=== PATIENT | male | born 1970 | race Caucasian/White ===

== ENCOUNTER 2019-03-18 17:34 | Emergency (ER) | payer SELFPAY ==
[2019-03-18 17:36] VITALS: BP 144/95; PULSE 100; RESP 17; TEMP 36.8; O2SAT 98; BMI 24.0
[2019-03-18] MEDS: Bupivacaine Mpf 0.5% 30 ML VIAL INFILT (18:38)
--- NOTE | 2019-03-18 18:40 | RAD_ITS ---
STUDY: X-RAY - RIGHT HAND, ATTENTION FIRST FINGER REASON FOR EXAM: Male, 48 years old. Pain and redness edema TECHNIQUE: view(s) of the finger were obtained. COMPARISON: None. FINDINGS: The bones of the thumb are intact and located. There is focal soft tissue swelling immediately proximal to the nail. RAD/Finger(s) Min 2 Views IMPRESSION: Intact osseous structures. Linda-ungal soft tissue swelling. Electronically Signed: Clem Lowry, at 19:01 EDT Tel , Service support ,
--- NOTE | 2019-03-18 19:48 | ED.DCSUM_ITS ---
- ER Visit Summary Date of Service: 03/18/19 Chief Complaint: Right thumb pain History of Present Illness: The patient is a 48 M with no primary care physician. He reports his right thumb pain that began 5 days ago. Describes a sharp, throbbing pain is 10 to 10 hours now 10 currently. Is worsened by noth ing. Is relieved by soaks and Epson salts. He reports he does have paresthesias. He denies any trauma. He denies any drainage from the area. He denies any fever. Physical Examination: Vitals: Stable. Afebrile. General: Well-nourished and well-developed. Head: Normocephalic atraumatic. Neck: Supple, no lymphadenopathy. No JVD. Nontender. Cardiovascular: Regular rate and rhythm. No murmurs. Respiratory: No respiratory distress. Clear to auscultation bilaterally. Abdominal: Soft, nontender, nondistended, normal bowel sounds. No guarding, rebound, or peritoneal signs. Back: Nontender. Extremities: Right thumb: Large paronychia that starts on the medial side and extends laterally. This also extends under the nail. There is no felon. Skin: Normal color, no rash. Neurologic: Alert and oriented ?3. Cranial nerves II through XII are intact. Normal strength and sensation. Psych: Normal affect. Test Results: X-ray shows no bony involvement Emergency Department Course and Treatment: Patient had a digital block performed. This was drained. He tolerated this well. He refused pain medications. He does not want a dose of antibiotics here as it is too expensive. Treatment Plan: Patient will be discharged with a prescription for Augmentin. He refused pain medications for home. He is instructed to follow-up with Dr. Hinojosa in 2 days for a wound check. Return to the emergency department for any worsening symptoms. Disposition: To home in improved and stable condition. Impression: 1. Right thumb paronychia. 2. Incision and drainage. Procedure Note: Thumb was cleansed with chlorhexidine soap. Anesthetized with 5 cc of bupivacaine as a digital block. An 11 blade was used to separate the nail from the eponychial fold. A large amount of pus was drained. The wound was copiously irrigated with normal saline. It was loosely packed with iodoform gauze. The patient tolerated it well. This note was generated with Dragon dictation software. It may contain incorrect words, spelling, and punctuation that were not noted in review of the chart prior to signing ED Disposition - Plan for ED Patient: Disposition: Home or Assisted Living Instructions: Paronychia Prescriptions: Amox/Clavulanate Tablet [Augmentin Tablet] 875 mg PO Q12H #14 tab Prescription Printed Referrals: Michael Hinojosa DO [STAFF PHYSICIAN] - 2 Days for wound check
[2019-03-18 20:04] VITALS: RESP 16
== END 2019-03-18 20:05 | disposition home or self-care (01) ==
LOC: ED 18:33
PROVIDERS: Emergency Provider Emergency Medicine
DX: L03.011 Cellulitis of right finger (principal); Z72.0 Tobacco use
CPT/HCPCS: 10060; 73140; 99284

== ENCOUNTER 2020-04-29 17:22 | Emergency (ER) | payer MEDICAID, SELFPAY ==
[2020-04-29 17:23] VITALS: BP 146/95; PULSE 88; RESP 16; TEMP 36.6; O2SAT 99; BMI 24.8
--- NOTE | 2020-04-29 18:52 | ED.VIS.GEN ---
History of Present Illness Chief Complaint: Abd Pain Informant: Patient Onset: Month(s) - 1 Narrative: Patient presents with concerns of hernia right pelvic region. States initially noticed symptoms a month ago 2 weeks ago was lifting when he had the push it down. States mild symptoms that would come and go. No nausea or vomiting. Normal daily bowel movements. No history of similar prior to a month ago. Denies any past medical history. Prior similar symptoms: No Past Medical History - Allergies and Home Meds Allergies/Adverse Reactions: Allergies No Known Allergies Allergy (Verified 04/29/20 17:25) Primary Care Physician: Care Physician,No Primary [Primary Care Provider] - Past Medical History: None Smoking Status: Current some day smoker Review of Systems General: Denies: Chills, Fever, Sweats Eyes: Denies: Visual changes - bilaterally, Diplopia ENT: Denies: Rhinorrhea, Sore throat Cardiovascular: Denies: Chest pain, Palpitations Respiratory: Denies: Dyspnea, Cough, Dyspnea on exertion Gastrointestinal: Reports: - - Hernia. Denies: Abdominal pain, Nausea, Vomiting, Diarrhea, Melena, Hematochezia Genitourinary: Denies: Dysuria, Hematuria, Frequency Musculoskeletal: Denies: Back pain, Extremity Pain Skin: Denies: Rash, Wounds Neurological: Denies: Headache, Weakness, Numbness Physical Exam Vital Signs/Narrative: Vital Signs Temp Pulse Resp BP Pulse Ox 04/29/20 17:23 98 F 88 16 146/95 H 99 Inital Vital Signs reviewed: Yes General: Well nourished, Well developed, No Acute Distress Head: Normocephalic, Atraumatic Eyes: Perrl, EOMI ENT: Moist mucous membranes, No rhinorrhea Neck: Supple, Nontender Cardiovascular: Regular rate, Regular rhythm, No murmurs Respiratory: No distress, CTA bilaterally, Chest nontender Abdomen: Soft, Nontender, Nondistended, Normal bowel sounds, - - Right pelvis palpated direct hernia that was reducible both in standing and laying down. There is no inguinal hernia. Back: Nontender, Normal Inspection Extremities: Nontender, No edema Skin: Normal color, No rash Neurological: Alert, Oriented x3, Cranial nerves II-XII grossly intact, Normal Strength, Normal Sensation Psychological: Normal affect, Normal Mood Diagnostic/Tx/Re-eval - Medical Decision Making Patient nontoxic exam with concerns for direct hernia that is reducible. Patient given work restrictions with lifting. Strict signs and symptom discussed return, outpatient follow-up with on-call surgeon was given. ED Disposition - Plan for ED Patient: Disposition: Home or Assisted Living Diagnosis: Hernia Instructions: What Is a Hernia? Referrals: Care Physician,No Primary [Primary Care Provider] - David Stratton MD [STAFF PHYSICIAN] - 3-5 Days
== END 2020-04-29 19:21 | disposition home or self-care (01) ==
LOC: ED 19:15
PROVIDERS: Emergency Provider Emergency Medicine
DX: K40.90 Unilateral inguinal hernia, without obstruction or gangrene, not specified as recurrent (principal); F17.200 Nicotine dependence, unspecified, uncomplicated
CPT/HCPCS: 99282

== ENCOUNTER 2020-05-16 05:47 | Day surgery (SDC) | payer MEDICAID, SELFPAY ==
[2020-05-02 15:15] VITALS: BMI 24.8
[2020-05-10 11:02] LABS: Hematocrit 47.1 % (40-54); Hemoglobin 15.5 g/dL (13.0-16.5); Mean Corp Hgb Conc 32.9 g/dL (32-36); Mean Corpuscular Hgb 32.4 pg (27.0-32.0); Mean Corpuscular Volume 98.5 fL (80-94); Mean Platelet Vol. 11.5 fl (6.2-12.0); Platelet Count 262 K/mm3 (150-450); RBC Distribution Width CV 12.1 % (11.6-14.6); RBC Distribution Width SD 44.2 fl (35.1-43.9); Red Blood Count 4.78 M/mm3 (4.6-6.2)
[2020-05-10 11:17] LABS: Prothrombin Time (Protime)PT. 12.5 SECONDS (11.7-14.9)
[2020-05-10 11:18] LABS: Partial Thromboplast Time 27.7 Seconds (24.1-36.2)
[2020-05-10 11:33] LABS: AST(SGOT) 17 U/L (15-37); Alanine Aminotransfer ALT/SGPT 23 U/L (16-61); Albumin, Serum 3.8 g/dL (3.2-5.0); Alkaline Phosphatase 70 U/L (45-117); Bilirubin, Direct 0.09 mg/dL (0.00-0.30); Globulin 3.4 g/dL (2.2-4.2); Protein, Total 7.2 g/dL (6.4-8.2)
[2020-05-16 06:19] VITALS: BP 113/72; PULSE 64; RESP 16; TEMP 36.8; O2SAT 99; BMI 24.3
[2020-05-16] MEDS: Lactated Ringers 1,000 ML 100 ML IV (06:46)
--- NOTE | 2020-05-16 06:47 | HP.PCM_ITS ---
History and Physical Date of Admission: 05/16/20 [facility] [address] [place], [place] [address] OFFICE VISIT Date of Service: 05/02/20 MR#: [id number] Acct: [id number] Name: RENAE GREENFIELD Rep #: [id number] Provider: Dr. Vinay Stratton MD Age/Sex: 49/M Location: [facility] Status: Signed Intake Vital Signs 05/02/20 Height 5 ft 10 in 05/02/20 Weight: 175 lb 8 oz 05/02/20 BMI 25.2 05/02/20 BP 149/79 H 05/02/20 Blood Pressure Location Rt brachial 05/02/20 Position Sitting 05/02/20 Respiration 18 05/02/20 Pulse 91 05/02/20 Pulse Source Monitor 05/02/20 Temp 98.2 F 05/02/20 Temp Source Temporal 05/02/20 Pulse Oximetry (%) 98 05/02/20 Oxygen Delivery Method room air Intake Visit Reasons: ER F/U HERNIA 04/29 Chief Complaint: ER F/U Hernia Physicist [place] Required: No Is patient in pain?: No Allergies No Known Allergies Allergy (Verified 05/09/20 16:06) Medications NK 04/29/20 [History Confirmed 05/09/20] [facility] Medical History Abdominal pain (Acute) Arthritis (Acute) History of back problems (Acute) COPD (chronic obstructive pulmonary disease) (Chronic) Surgical History history ORIF left ankle (Acute) Family History Father Arthritis Heart disease High cholesterol CVA (cerebral vascular accident) Mother Breast cancer Daughter Seizures Social History (Updated 05/16/20 @ 06:[address] David Stratton MD) Smoking Status: Current some day smoker alcohol intake: current substance use type: does not use HPI HPI HPI: RENAE GREENFIELD, is a 49 M who presents to the office today for HPI HPI HPI: RENAE GREENFIELD, is a 49 M who presents to the office today for Evaluation of a right inguinal hernia. Patient was seen in the emergency department diagnosed with a hernia and subsequently sent to me for further evaluation. States initially noticed symptoms a month ago 2 weeks ago was lifting when he had the push it down. States mild symptoms that would come and go. No nausea or vomiting. Normal daily bowel movements. No history of similar prior to a month ago. Denies any past medical history. Prior similar symptoms: No ROS General General: Yes weight change; no appetite, fatigue, colon cancer, breast cancer or weakness HEENT HEENT: No difficulty swallowing, eye injury, eye surgery, swollen glands or hoarseness Endo Endocrine: No thyroid disease, diabetes mellitus, thyroid cancer, Hair loss, heat intolerance or cold intolerance Skin Skin: No rash or changing moles Breast Breast: No left breast lump, right breast lump, nipple discharge, breast pain, abnormal mammogram, abnormal US or breast enlargement Musc Musculoskeletal: Yes back problems, arthritis and rheumatoid arthritis; no gout or joint pain Cardio Cardiovascular: No murmur, pacemaker, heart disease, atrial fibrillation, high blood pressure, heart attack, heart stent, palpitations, shortness of breat with exertion or chest pain Psych Psychiatric: No depression, anxiety or hearing voices Resp Respiratory: Yes shortness of breath, No sleep apnea, No cough, Yes COPD, No asthma, No emphysema, No wheezing Gastro Gastrointestinal: Yes abdominal pain, Yes nausea or vomiting, No diarrhea, No constipation, No blood in stool, No acid reflux, No hemorrhoids, No ulcers, No gallbladder problem, No black,tarry stools Noah Hematologic: No blood thinners, No blood disorders, No bleeding, No anemia, No blood clots Neuro Neurologic: No system reviewed and no additional complaints, except as docu, No as per HPI, No abnormal walking, No abnormal hearing, No abnormal movements, No abnormal speech, No behavioral changes, No burning sensations, No confusion, No seizure-like activity, No unsteadiness, No dizziness, No localized weakness, No frequent falls, No headache(s), No lack of coordination, No loss of vision, No memory loss, No numbness, No other visual disturbances, No radiating pain, No restless legs, No sensory deficit, No fainting, No tingling, No tremor(s), No weakness, No other Exam Const General: no acute distress, well developed, well hydrated Orientation: oriented to person, oriented to place, oriented to time [facility] Head: normocephalic, atraumatic Ears: external ears normal Mouth: moist mucous membranes Eyes Sclera: sclerae normal Pupils: normal by confrontation Neck Neck: no lymphadenopathy noted Neck mass: No Thyroid: thyroid normal, symmetrical Chest Chest palpation & inspection: normal inspection of the chest Breast Palpation: No nipple discharge Resp Effort & Inspection: normal respiratory effort Auscultation: clear to auscultation bilaterally Percussion: percussion normal Cardio Rate: regular rate Rhythm: regular rhythm Heart Sounds: no murmurs GI Palpation: soft, no hepatosplenomegaly, no masses, tender Rectal Exam: other Other: Reducible right inguinal hernias noted. Rectal exam deferred. Extrem General: normal to inspection, no clubbing, cyanosis or edema Assessment & Plan Problems 1. Right inguinal hernia K40.90 Plan My plan is to perform a Laparoscopic right inguinal hernia repair. The planned surgical procedure was discussed extensively with the patient. The risks, benefits, anticipated outcomes and possible complication were mentioned. The patient understands that all hernia repair surgery has a chance of recurrence and/or chronic post-operative pain. My staff has also explained the procedure in understandable terms and the patient was given the option to take printed material concerning the planned procedure. The patient had the opportunity to ask questions concerning the planned procedure. The patient freely consents to the planned procedure. Coding Level of Care Code Off vis,new,level 3 Diagnoses Right inguinal hernia K40.90 COVID (Procedure Consent) Procedure Criteria Procedure Criteria: Yes Elective The surgeon/proceduralist and patient have discussed in detail the risk of exposure to and/or potential harm posed by the COVID-19 virus with having a surgery/procedure at this time versus the risk of? delaying the surgery/procedure. It is not possible to know either the risk of delaying the surgery or procedure or chance of getting an infection with perfect accuracy, but a joint decision was made between the patient and the surgeon/proceduralist ?to proceed at this time with the scheduled surgery/procedure as indicated on the consent form. 05/16/20 0647 <Electronically signed by David wilson MD> Date _ David Dryden MD [place] Signature: Date (if applicable) CC: Dr. Edin Hummel, DO ~ I have re-examined the patient. There are no clinical changes since date of exam.
[2020-05-16] MEDS: Cefazolin 2 GM in 0.9% Normal Saline 100 ML IV (07:22)
[2020-05-16] MEDS: Bupivacaine Mpf 0.5% 30 ML VIAL (08:04)
--- NOTE | 2020-05-16 08:22 | PCM.DC.HER ---
Discharge Diet: Light diet - advance as tolerated Discharge Activity: Return to Normal Activity, May Drive - when you are no longer taking narcotic pain medications., May Shower - with the bandage in place 1-2 days after surgery. Lifting Restrictions: 20 pounds for 8 weeks. Additional Activity Instructions:: Climbing stairs is fine, walking is encouraged. Sitting in bed may be uncomfortable. Sitting up using your lateral muscles (sitting up sideways) is usually more comfortable. Do not drive, work heavy equipment of sign legal documents for 24 hours. If your hernia repair was an ingunial repair, you may have scrotal swelling, an ice pack and/or athletic support can provide more comfort. Pain medications may cause nausea, you should typically eat light foods as you take your pain medications. Pain medications may also cause constipation. If you have difficulty with this, discuss with your doctor. Call your doctor if your incision/area has: Continuous Slow Oozing, Sudden Increased Bleeding, Increased Pain/ Swelling, Increased Redness, Foul Smelling Discharge Call your doctor if you observe: Fever of 101 or Higher Suture Line Care: Avoid Pulling/Pushing, Avoid Pinching/Bending Additional Dressing/Incision Instructions:: Leave the operative bandage on for 2-3 days. When you remove the bandage, leave the steri-strips on place until your follow up appointment or they fall off. Allergies/Adverse Reactions: Allergies No Known Allergies Allergy (Verified 05/09/20 16:06) Medications to take at Discharge Oxycodone HCl/Acetaminophen [Percocet 5/325] 1 - 2 tablet PO Q4H PRN PRN 6 Days #30 tablet 05/16/20 The following prescriptions were given: Oxycodone HCl/Acetaminophen [Percocet 5/325] 1 - 2 tablet PO Q4H PRN PRN 6 Days #30 tablet PRN Reason: Pain Transmission [id number] Primary Care Physician: Care Physician,No Primary [Primary Care Provider] - Test Results: Test results from this visit will be discussed in further detail at your follow-up appointment, if applicable. Please Follow Up With: David Stratton MD - [phone] When: Plan to have a follow up appointment in 7 days. Call to schedule.
--- NOTE | 2020-05-16 08:23 | OP.PCM_ITS ---
Problem List (1) Right inguinal hernia Status: Acute Report of Operation Date of Procedure: 05/16/20 Pre-Operative Diagnosis: Right inguinal hernia Post-Operative Diagnosis: Same Surgery/Procedure Performed:: Laparoscopic right inguinal hernia repair Anesthesiologist: Keenan Guillen Estimated Blood Loss (mL): <25 cc Description of Procedure: Patient was brought into the operating room. Placed in the supine position. Under excellent general endotracheal ovation the abdomen was sterilely prepped draped usual fashion. Local was injected Above the umbilicus. Dissection was carried down to the fascia. The fascia was grasped with a Bob. Varies needle was placed inside the abdomen. The abdomen was insufflated to 15 torr.A 10/12 t rocar was placed without difficulty. It was flank by 2 #5 trochars placed under direct visualization without injury to underlying structures.Patient was placed in the headdown and rotated to the left position. I scored the peritoneum on the right. I dissected down to Thomas's ligament. I brought back a direct inguinal hernia. I then dissected further laterally identifying the cord and vessel structures. There was no indirect defect noted. I dissected further laterally. I made sure not to get too deep to involve any potential nerves. I fashioned a medium 3D Max mesh into the wound. I tacked it to Thomas's ligament with a protacker. I tacked it superiorly and laterally with sparing tacks. I then reperitonealized the area with a tacker. The mesh was covered completely. Trochars were removed under direct visualization good amount stasis was noted. I closed the fascia of the umbilical port with 0 Vicryl. Skin incisions Were closed with 4-0 Monocryl. Sterile dressings were applied. The patient tolerated the procedure well. - Admit VTE Documentation VTE Present on Admission: No VTE Mechan Device Prophylaxis: SCD's VTE Pharm Prophylaxis ordered?: No Reason prophylaxis not ordered:: Treatment Not Indicated [id number]: [id number] Lap ing hernia repair init
[2020-05-16 08:28] VITALS: BP 113/72; BP 123/85; PULSE 70; RESP 16; TEMP 36.6; O2SAT 100
[2020-05-16 08:45] VITALS: BP 113/72; BP 119/79; PULSE 73; RESP 16; O2SAT 98
[2020-05-16 08:59] VITALS: BP 113/72; BP 122/79; PULSE 54; RESP 16; TEMP 36.3; O2SAT 100
[2020-05-16 09:34] VITALS: BP 113/72; BP 130/80; PULSE 58; RESP 16; TEMP 36.5; O2SAT 99
== END 2020-05-16 09:35 | disposition home or self-care (01) ==
LOC: SDC 05:47 → AC 05:48
PROVIDERS: Anesthesiology; Referring Provider Surgery; Visit Provider Surgery
PROC: (CPT 49650; principal; 2020-05-16 07:10)
DX: K40.90 Unilateral inguinal hernia, without obstruction or gangrene, not specified as recurrent (principal); J44.9 Chronic obstructive pulmonary disease, unspecified; M19.90 Unspecified osteoarthritis, unspecified site; F17.200 Nicotine dependence, unspecified, uncomplicated; Z20.828 Contact with and (suspected) exposure to other viral communicable diseases
CPT/HCPCS: 00840; 49650; 36415; 80076; 85027; 85610; 85730; 87635; 93005; C9803; J7120; C1781; J2405; U0003

== ENCOUNTER 2021-04-13 10:43 | Emergency (ER) | payer MEDICAID, SELFPAY ==
[2021-04-13 10:44] VITALS: BP 141/88; PULSE 77; RESP 16; TEMP 36.4; O2SAT 97; BMI 24.0
--- NOTE | 2021-04-13 10:53 | RAD_ITS ---
STUDY: X-RAY - UNILATERAL RIBS ( LEFT ) WITH CHEST REASON FOR EXAM: Male, 50 years old. chest injury, fall TECHNIQUE - RIBS: 4 view(s) of the ribs. TECHNIQUE - CHEST: Single AP portable view of the chest. COMPARISON: None. FINDINGS - RIBS: There is a transverse mildly displaced fracture of the lateral left seventh rib. FINDINGS - CHEST: The lungs are clear and expanded. There is no demonstrated pleural abnormality. Normal size heart. Normal mediastinum and lolly. Normal visualized pulmonary arteries. Normal visualized aortic arch and descending thoracic aorta. Normal visualized thoracic spine. Normal visualized ribs, clavicles, and shoulders. There is no demonstrated abnormality of the visualized soft tissue structures of the upper abdomen. RAD/Ribs Uni Min 3V w/PA Chest IMPRESSION: RIBS: Mildly displaced lateral left seventh rib fracture. CHEST: Normal x-ray examination of the chest. Electronically Signed: Andi Reddy DO at 11:23 EDT , Service support ,
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
== END 2021-04-13 12:19 | disposition home or self-care (01) ==
PROVIDERS: Emergency Provider Emergency Medicine
DX: S22.32XA Fracture of one rib, left side, initial encounter for closed fracture (principal); M19.90 Unspecified osteoarthritis, unspecified site; J44.9 Chronic obstructive pulmonary disease, unspecified; F17.210 Nicotine dependence, cigarettes, uncomplicated; W18.30XA Fall on same level, unspecified, initial encounter; Y93.89 Activity, other specified; Y92.89 Other specified places as the place of occurrence of the external cause; Y99.8 Other external cause status
CPT/HCPCS: 71101; 99282

== ENCOUNTER 2023-10-25 14:23 | Emergency (ER) | payer MEDICAID, SELFPAY ==
[2023-10-25 14:23] VITALS: BP 141/85; PULSE 69; RESP 14; TEMP 36.3; O2SAT 99; BMI 25.2
--- NOTE | 2023-10-25 14:55 | RAD_ITS ---
STUDY: X-RAY - LEFT HUMERUS REASON FOR EXAM: Male, 52 years old. Injury TECHNIQUE: 2 view(s) of the humerus. COMPARISON: None. FINDINGS: Impacted nondisplaced fracture of the surgical neck of the proximal humerus. Soft tissue swelling. RAD/Humerus min 2 Views IMPRESSION: Nondisplaced impacted fracture of the surgical neck of the proximal humerus with overlying soft tissue swelling. Electronically Signed: Patel Stanley MD at 15:56 EDT ,
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
[2023-10-25] MEDS: Morphine 4 MG/ML Syringe IV (15:07)
[2023-10-25] MEDS: Ondansetron 4 MG/2 ML Vial IV (15:07)
--- NOTE | 2023-10-25 15:21 | RAD_ITS ---
STUDY: X-RAY - LEFT SHOULDER REASON FOR EXAM: Male, 52 years old. Injury TECHNIQUE: 2 view(s) of the shoulder. COMPARISON: None. FINDINGS: Normal glenohumeral articulation. There is degenerative arthrosis of the acromioclavicular joint without inferior osseous spur formation. Normal acromion. Impacted nondisplaced fracture of the surgical neck of the proximal humerus. Soft tissue swelling. Normal visualized pulmonary apex. RAD/Shoulder min 2 Views IMPRESSION: Impacted nondisplaced fracture of the surgical neck of the proximal humerus. Electronically Signed: Patel Stanley MD at 15:55 EDT ,
[2023-10-25 16:23] VITALS: BP 137/84; PULSE 64; RESP 16; O2SAT 98
[2023-10-25] MEDS: HYDROcodone Bitartrate/Apap 5/325 Tablet PO (16:43)
[2023-10-25 16:51] VITALS: BP 138/78; PULSE 81; RESP 16; TEMP 36.6; O2SAT 99
== END 2023-10-25 17:00 | disposition home or self-care (01) ==
PROVIDERS: Emergency Provider Emergency Medicine; Visit Provider Emergency Medicine
DX: S42.215A Unspecified nondisplaced fracture of surgical neck of left humerus, initial encounter for closed fracture (principal); J44.9 Chronic obstructive pulmonary disease, unspecified; W17.89XA Other fall from one level to another, initial encounter; M19.90 Unspecified osteoarthritis, unspecified site; F17.210 Nicotine dependence, cigarettes, uncomplicated
CPT/HCPCS: 73030; 73060; 96374; 96375; 99284; A4216; J2405